=== PATIENT | male | born 1960 | race African-American/Black ===

== ENCOUNTER 2018-05-16 16:51 | Emergency (ER) | payer OTHER ==
[~2018-05-16] VITALS: Ht 157.5 cm; Wt 54.5 kg
--- NOTE | 2018-05-16 16:51 | NUR ---
JUAN RAMON from [facility] for med clearance, +Legal 1999 [employer] ("people/[employer] are going to kill me/cattle-prod my left rectum, voices on the radio are threatening me), +flight of ideas, calm & cooperative; hx/o SA (OD), unsure of psych meds; pt changed into gown, NAD, comfort measures provided, pt in safe environement, sitter requested, [facility]; all personal belongings in bag x1 placed in locker.
--- NOTE | 2018-05-16 17:20 | NUR ---
pt sister Rosalva arrived & spoke with PA reiterating pt recent behavior (re: paranoia & verbal aggression stated on Legal hold).
--- NOTE | 2018-05-16 18:00 | NUR ---
pt sitting on gurney (occas stands in room) awake & rambling to self, responds to staff & cooperative, NAD, comfort measures provided, pt remains in safe environment, sitter in view.
[2018-05-16 18:18] LABS: MEAN CORPUSCULAR HEMOGLOBIN 29.1 pg (27.5-34.5); MEAN CORPUSCULAR HGB CONC 33.2 g/dL (33.2-36.2); MEAN CORPUSCULAR VOLUME 87.7 fL (81-97); MEAN PLATELET VOLUME 6.6 fL (7.4-10.4); PLATELET COUNT 536 x10^3/uL (130-400); RED BLOOD COUNT 4.42 x10^6/uL (4.38-5.82)
[2018-05-16 18:26] LABS: ALBUMIN 3.7 g/dL (3.4-5.0); ANION GAP 6 mmol/L (5-15); CALCIUM 9.5 mg/dL (8.5-10.1); CHLORIDE 105 mmol/L (98-107)
[2018-05-16 18:26] LABS: AMPHETAMINE SCREEN, URINE Negative (Negative); BARBITURATE SCREEN, URINE Negative (Negative); BENZODIAZEPINE SCREEN, URINE Negative (Negative); CANNABINOID SCREEN, URINE Negative (Negative); COCAINE SCREEN, URINE Negative (Negative); METHADONE SCREEN, URINE Negative (Negative); OPIATE SCREEN, URINE Negative (Negative)
[2018-05-16 18:31] LABS: SALICYLATE LEVEL < 1.7 mg/dL (2.8-20.0)
[2018-05-16 18:33] LABS: CREATININE 0.88 mg/dL (0.7-1.3)
[2018-05-16 18:35] LABS: ACETAMINOPHEN < 2 mcg/mL (10-30)
--- NOTE | 2018-05-16 18:53 | NUR ---
report given to Eli
[2018-05-16 19:19] LABS: BASOPHILS # (AUTO) 0.08 x10^3/uL (0-0.1); BASOPHILS % (AUTO) 2 % (0-1); EOSINOPHILS # (AUTO) 0.04 x10^3/uL (0-0.4); EOSINOPHILS % (AUTO) 1 % (1-7); LYMPHOCYTES # (AUTO) 1.21 x10^3/uL (1-3.4); LYMPHOCYTES % (AUTO) 25 % (22-44); MD SCAN; MONOCYTES # (AUTO) 0.25 x10^3/uL (0.2-0.8); MONOCYTES % (AUTO) 5 % (2-9); NEUTROPHILS # (AUTO) 3.25 x10^3/uL (1.8-6.8); NEUTROPHILS % (AUTO) 67 % (42-75)
--- NOTE | 2018-05-16 19:30 | NUR ---
PT IN ROOM TALKING TO HIMSELF. PT CALM AND FOLLOWS DIRECTIONS. SITTER AT DOOR.
--- NOTE | 2018-05-16 19:50 | NUR ---
NAI RN: PACKET FAXED TO [facility]. CONFIRMATION RECEIVED.
--- NOTE | 2018-05-16 20:11 | NUR ---
PT STANDING IN ROOM CONTINUING TO TALK TO HIMSELF. SITTER AT DOOR.
[2018-05-16] MEDS ORDERED: DOCUSATE 100 MG CAPSULE PO PRN (20:30)
[2018-05-16] MEDS ORDERED: LIDODERM 5% PATCH TD PRN (20:30)
[2018-05-16] MEDS ORDERED: ONDANSETRON ODT 4 MG PO PRN (20:30)
[2018-05-16] MEDS ORDERED: LABETALOL 5 MG/ML SYRINGE IVPush PRN (20:30)
[2018-05-16] MEDS ORDERED: LORazepam 1MG TABLET PO PRN (20:30)
[2018-05-16] MEDS ORDERED: ACETAMINOPHEN 325 MG TABLET PO PRN (20:30)
[2018-05-16 20:44] LABS: ALBUMIN 3.9 g/dL (3.4-5.0); BILIRUBIN, DIRECT 0.1 mg/dL (0.1-0.2)
[2018-05-16 20:46] LABS: BILIRUBIN,INDIRECT 0.4 mg/dL (0.0-2.0); BILIRUBIN,TOTAL 0.5 mg/dL (0.2-1.0); TOTAL PROTEIN 9.1 g/dL (6.4-8.2)
--- NOTE | 2018-05-16 21:05 | NUR ---
PT TALKING TO SITTER, "STATED HE TRIED TO KILL HIMSELF BECAUSE "THEY" WERE TRYING TO KILL HIM. SO HE THOUGHT HE WOULD DO THE JOB FIRST". PT REMAINS CALM. NO NEEDS EXPRESSED BY PT AT THIS TIME. SITTER AT DOOR.
--- NOTE | 2018-05-16 22:40 | NUR ---
PT PACING AROUND ROOM TALKING. NO NEEDS STATED BY PT. WILL CONTINUE TO MONITOR
--- NOTE | 2018-05-16 23:11 | NUR ---
pt in room talking to himself. pt given crackers per his request. sitter at door.
--- NOTE | 2018-05-17 00:44 | NUR ---
pt given sandwich and milk. pt upset about having to stay in hospital. pt given socks also. sitter at door
--- NOTE | 2018-05-17 01:46 | NUR ---
pt ranting about germans loudly. pt asked to use indoor voice. pt stated he would. sitter at door. will continue to monitor.
--- NOTE | 2018-05-17 02:41 | NUR ---
pt resting in bed. no stated needs, continuing to talk to himself. sitter at door.
--- NOTE | 2018-05-17 03:49 | NUR ---
block captain in bed continuing to talk. sitter at door.
--- NOTE | 2018-05-17 04:31 | NUR ---
PT RESTING IN BED. NO STATED NEEDS. WILL CONTINUE TO MONITOR.
--- NOTE | 2018-05-17 05:13 | NUR ---
PT LAYING DOWN IN BED AT THIS TIME WITH COVERS OVER HIM. SITTER AT DOOR FOR FREQUENT OBS
--- NOTE | 2018-05-17 05:15 | NUR ---
BREAKFAST ORDERED FOR PT.
--- NOTE | 2018-05-17 06:59 | NUR ---
PT AWAKE SITTING UP IN BED TALKING TO THE AGUIRRE. REPORT TO TRACI JAVED.
[2018-05-17 07:32] VITALS: BP 97/58
--- NOTE | 2018-05-17 07:32 | NUR ---
pt demonstrates flight of ideas but redirectable. no acute s/s of distress. sitter monitoring from hallway for safety, room secured. pt denies needs at this time
--- NOTE | 2018-05-17 08:17 | NUR ---
pt provided with breakfast tray and water cup per request. pt denies any further needs at this time
--- NOTE | 2018-05-17 08:58 | NUR ---
isac sister called [phone] cell
--- NOTE | 2018-05-17 09:15 | NUR ---
INSURANCE UPDATED. PACKET FAXED TO [facility], [place], [place], [facility] AND [facility]
--- NOTE | 2018-05-17 09:27 | NUR ---
pt has rapid speech and flight of ideas. refuses ativan at this time. pt is reassurable and pleasant in conversation. pt ate approx 50% of meal. provided with cup of water. denies further needs at this time. room secured, sitter monitoring from [address]
--- NOTE | 2018-05-17 10:00 | NUR ---
sbar to caren heath from [place] via telephone. Dr Benson will be accepting
--- NOTE | 2018-05-17 10:46 | NUR ---
NOTIFIED [facility] 1200 ETA
[2018-05-17] MEDS ORDERED: LORazepam 1MG TABLET ONE (11:04)
--- NOTE | 2018-05-17 11:06 | NUR ---
PT RAPID SPEECH PERSISTENT BUT MORE AGITATED, PT REASSURABLE AND VERBALIZES POC. PT AWARE OF TRANSPORT VIA [facility] TO [place]. PT MEDICATED PER MAR
--- NOTE | 2018-05-17 11:08 | NUR ---
PT PROVIDED WITH WATER
--- NOTE | 2018-05-17 11:42 | NUR ---
ATTEMPT TO CALL SISTER SERGO PER PT REQUEST. LEFT MESSAGE TO CALL BACK
== END 2018-05-17 11:52 ==
LOC: ED 18:45 → UNDOADMIN 19:35 → EDIP 19:35 → ED 05-17 11:52
DX: F22 Delusional disorders (principal)
CPT/HCPCS: 36415; 80048; 80076; 80307; 80329; 82040; 82140; 85025; 99285; G0480